=== PATIENT | male | born 1970 | race Two or more races ===

== ENCOUNTER 2024-08-01 18:53 | Inpatient (IN) | payer OTHER ==
[~2024-08-01] VITALS: Ht 177.8 cm; Wt 89.4 kg
[2024-08-01] MEDS ORDERED: DIAZEPAM 5 MG TABLET ONE (19:24)
[2024-08-01] MEDS: IV NS 0.9% 1,000 ML BAG IV ONE (19:52)
[2024-08-01] MEDS: DIAZEPAM 5 MG TABLET PO ONE (19:52)
[2024-08-01 19:59] LABS: HEMATOCRIT 34 % (39-51); HEMOGLOBIN 11.6 g/dL (13.5-17.5); MEAN CORPUSCULAR HEMOGLOBIN 35 PG (26.0-33.0); MEAN CORPUSCULAR HGB CONC 34 g/dl (31.0-36.0); MEAN CORPUSCULAR VOLUME 104 fL (80-96); NEUTROPHILS % (AUTO) 77.9 % (43.0-81.0); PLATELET COUNT (AUTO) 166 K/uL (150-450); RED BLOOD CELL COUNT(AUTO) 3.29 MIL/uL (4.5-6.0); RED CELL DISTRIBUTION WIDTH 13.9 % (11.5-15.0); WHITE BLOOD COUNT (AUTO) 6.1 K/uL (4.3-11.0)
[2024-08-01 20:00] LABS: BASOPHILS % (AUTO) 0.5 % (0.0-2.0); EOSINOPHILS % (AUTO) 0.8 % (0.0-6.0); LYMPHOCYTES # (AUTO) 0.8 K/uL (0.8-4.8); LYMPHOCYTES % (AUTO) 13.8 % (20.0-44.0); MONOCYTES # (AUTO) 0.4 K/uL (0.1-1.30); NEUTROPHILS # (AUTO) 4.7 K/uL (1.8-8.9)
[2024-08-01 20:14] LABS: ALBUMIN 3.6 g/dL (3.4-5.0); BILIRUBIN,DIRECT 0.1 mg/dL (0.0-0.2); BILIRUBIN,TOTAL 1.1 mg/dL (0.2-1.0); CREATININE 1.1 mg/dL (0.6-1.3); POTASSIUM 4.6 mmol/L (3.5-5.1); TOTAL PROTEIN, SERUM 7.7 g/dL (6.4-8.2)
[2024-08-01 20:43] LABS: APPEARANCE,URINE CLEAR (CLEAR); BILIRUBIN,URINE NEGATIVE (NEGATIVE); BLOOD, URINE NEGATIVE Ery/uL (NEGATIVE); COLOR,URINE YELLOW (YELLOW); KETONES,URINE NEGATIVE (NEGATIVE); LEUKOCYTE ESTERASE ,URINE NEGATIVE (NEGATIVE); NITRITE, URINE NEGATIVE (NEGATIVE); PH,URINE 6.5 (5.0-8.0); PROTEIN,URINE NEGATIVE (NEGATIVE); UGLUCOSE NEGATIVE (NEGATIVE); UROBILINOGEN,URINE 0.2 EU/dL (0.2)
[2024-08-01] MEDS ORDERED: MAG HYDROX/AL HYDROX/SIMETH 30 ML UDC PO PRN (21:30)
[2024-08-01] MEDS ORDERED: MAGNESIUM HYDROXIDE 30 ML UDC PO PRN (21:30)
[2024-08-01] MEDS ORDERED: ACETAMINOPHEN 325 MG TABLET PO PRN (21:30)
[2024-08-01] MEDS ORDERED: ONDANSETRON HCL/PF 4 MG/2 ML VIAL IVP PRN (21:30)
[2024-08-01] MEDS ORDERED: Z GUARD REMEDY 4 OZ OINT TP PRN (21:30)
[2024-08-01] MEDS ORDERED: ZOLPIDEM TARTRATE 5 MG TABLET PO PRN (21:30)
[2024-08-01 21:40] VITALS: BP 153/95; TEMP 97.9; O2SAT 100
[2024-08-01] MEDS: IV NS 0.9% 1,000 ML IV PRN (22:03)
[2024-08-01 22:05] VITALS: BP 153/95; TEMP 97.9; O2SAT 100
[2024-08-01 22:32] LABS: LYMPHOCYTES % (MANUAL) 13 % (16-48); MONOCYTES % (MANUAL) 10 % (0-11.0); NEUTROPHILS % (MANUAL) 77 (42-76); PLATELET ESTIMATE ADEQUATE
[2024-08-01 22:33] LABS: ANISOCYTOSIS 1+
[2024-08-01 22:34] LABS: STOMATOCYTES 1+
[2024-08-01] MEDS: CHLORDIAZEPOXIDE HCL 25 MG CAPSULE PO SCH (23:32)
[2024-08-02] VITALS (10 sets, daily range): BP systolic 122–158; BP diastolic 77–98; TEMP 97.7–99.3; O2SAT 99–100
[2024-08-02] MEDS: LORAZEPAM INJ 2 MG/ML VIAL IM PRN (01:19)
[2024-08-02 06:19] LABS: BASOPHILS % (AUTO) 0.7 % (0.0-2.0); EOSINOPHILS # (AUTO) 0.1 K/uL (0.0-0.7); EOSINOPHILS % (AUTO) 1.5 % (0.0-6.0); HEMATOCRIT 35 % (39-51); LYMPHOCYTES # (AUTO) 0.8 K/uL (0.8-4.8); LYMPHOCYTES % (AUTO) 19.7 % (20.0-44.0); MEAN CORPUSCULAR HEMOGLOBIN 36 PG (26.0-33.0); MEAN CORPUSCULAR HGB CONC 34 g/dl (31.0-36.0); MEAN CORPUSCULAR VOLUME 103 fL (80-96); MONOCYTES # (AUTO) 0.2 K/uL (0.1-1.30); MONOCYTES % (AUTO) 5.9 % (2.0-12.0); NEUTROPHILS % (AUTO) 72.2 % (43.0-81.0); PLATELET COUNT (AUTO) 110 K/uL (150-450); RED BLOOD CELL COUNT(AUTO) 3.38 MIL/uL (4.5-6.0); RED CELL DISTRIBUTION WIDTH 13.8 % (11.5-15.0); WHITE BLOOD COUNT (AUTO) 4.2 K/uL (4.3-11.0)
[2024-08-02 07:16] LABS: ALBUMIN 3.4 g/dL (3.4-5.0); BILIRUBIN,DIRECT 0.5 mg/dL (0.0-0.2); CALCIUM, SERUM 8.9 mg/dL (8.5-10.1); PHOSPHORUS 1.9 mg/dL (2.5-4.9); POTASSIUM 3.3 mmol/L (3.5-5.1); TOTAL PROTEIN, SERUM 7.2 g/dL (6.4-8.2)
[2024-08-02 07:35] LABS: THYROID STIMULATING HORMONE 1.31 uIU/mL (0.358-3.74)
[2024-08-02] MEDS: THIAMINE HCL 100 MG TABLET PO SCH (08:16)
[2024-08-02] MEDS: FOLIC ACID 1 MG TABLET PO SCH (08:16)
[2024-08-02] MEDS: MULTIVITAMINS,THERAGRAN 1 UDTAB TABLET PO SCH (08:17)
[2024-08-02] MEDS ORDERED: LORA-259 PO (09:00)
[2024-08-02] MEDS ORDERED: CLON0.1T PO (09:00)
[2024-08-02] MEDS ORDERED: TRAZ-182 PO (09:00)
[2024-08-02] MEDS ORDERED: METO-357 PO (09:00)
[2024-08-02] MEDS ORDERED: FAMO40TA7 PO (09:00)
[2024-08-02] MEDS ORDERED: THIA100T70 PO (09:00)
[2024-08-02] MEDS ORDERED: GABA300C PO (09:00)
[2024-08-02] MEDS ORDERED: FOLI0.4T6 PO (09:00)
[2024-08-02] MEDS ORDERED: HYDR50CA5 PO (09:00)
[2024-08-02] MEDS ORDERED: ONDA-97 PO (09:00)
[2024-08-02] MEDS ORDERED: Magnesium 1GM/D5W 100ML PREMIX PIGGYBACK IV ONE (09:30)
[2024-08-02] MEDS: Magnesium 1GM/D5W 100ML PREMIX 100 ML IV SCH (09:32)
[2024-08-02] MEDS: POTASSIUM CHLORIDE 20 MEQ TAB.PRT.SR PO SCH (11:08)
[2024-08-02] MEDS: K PHOS NEUTRAL 250 MG TABLET PO ONE (15:49)
[2024-08-03 00:32] LABS: URINE SODIUM, RANDOM 73 mmol/l (40-220)
[2024-08-03 02:45] VITALS: BP 173/110; TEMP 99.3; O2SAT 99
[2024-08-03 03:00] VITALS: BP 168/108; TEMP 99.3; O2SAT 100
[2024-08-03 03:15] VITALS: BP 165/106; TEMP 99.3; O2SAT 99
[2024-08-03 03:45] VITALS: BP 163/107; TEMP 98.6; O2SAT 99
[2024-08-03 07:14] LABS: CALCIUM, SERUM 7.9 mg/dL (8.5-10.1); CREATININE 0.9 mg/dL (0.6-1.3); MAGNESIUM 1.5 mg/dL (1.8-2.4); PHOSPHORUS 3.2 mg/dL (2.5-4.9); POTASSIUM 3.1 mmol/L (3.5-5.1)
[2024-08-03 07:39] LABS: THYROID STIMULATING HORMONE 0.52 uIU/mL (0.358-3.74); URIC ACID 6.3 mg/dL (2.6-7.2)
[2024-08-03] MEDS: Magnesium 1GM/D5W 100ML PREMIX 100 ML IV SCH (09:11)
[2024-08-03] MEDS: POTASSIUM CHLORIDE 20 MEQ TAB.PRT.SR PO ONE (09:12)
[2024-08-03 15:22] LABS: OSMOLALITY,URINE 232 mOS/kg (340-1090)
[2024-08-03 23:30] VITALS: BP 140/104; TEMP 98.6; O2SAT 99
[2024-08-04 08:00] VITALS: BP 142/103; TEMP 98.6; O2SAT 100
== END 2024-08-04 16:52 | DRG 896 ==
LOC: ER 18:58 → MED 21:01
PROVIDERS: ADMIT Nurse Practitioner Family
DX: F10.139 Alcohol abuse with withdrawal, unspecified (principal); G93.41 Metabolic encephalopathy; E87.1 Hypo-osmolality and hyponatremia; D63.8 Anemia in other chronic diseases classified elsewhere; R73.9 Hyperglycemia, unspecified; Y90.0 Blood alcohol level of less than 20 mg/100 ml; Z79.899 Other long term (current) drug therapy; R74.01 Elevation of levels of liver transaminase levels; E66.9 Obesity, unspecified; Z68.28 Body mass index [BMI] 28.0-28.9, adult; E86.9 Volume depletion, unspecified; E83.42 Hypomagnesemia; E87.6 Hypokalemia
CPT/HCPCS: 36415; 70450-TC; 80048-TC; 80076-TC; 83735-TC; 83935-TC; 84100-TC; 84300-TC; 84443-TC; 84550-TC; 85025-TC; 87081-TC; 97112-TC; 97116-TC; 97530-TC; 98960; G0378; G0480; J2060; J3475; J7030